=== PATIENT | male | born 1980 | race Caucasian/White ===

== ENCOUNTER 2020-07-09 17:13 | Emergency (ER) | payer BC, SELFPAY ==
[2020-07-09 17:15] VITALS: BP 146/102; PULSE 126; RESP 20; TEMP 36.1; O2SAT 97; BMI 32.5
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
--- NOTE | 2020-07-09 17:44 | ED.DEP ---
ED Disposition - Plan for ED Patient: Disposition: Home or Assisted Living Instructions: ED Chronic Pain Referrals: Bandar Chaves DO [Primary Care Provider] - As Needed Rakesh Alegre DDS [STAFF PHYSICIAN] - 1-2 Weeks Additional Instructions: Follow-up with the oral surgeon Dr. Rakesh Alegre. Tylenol and/or Motrin for pain or your NSAID prescription at home. Low up with your primary care physician as needed.
[2020-07-09] MEDS: HYDROcodone Bitartrate/Apap 5/325 Tablet PO (17:53)
== END 2020-07-09 18:04 | disposition home or self-care (01) ==
LOC: ED 18:03
PROVIDERS: Emergency Provider Emergency Medicine; PCP Family Medicine
DX: R68.84 Jaw pain (principal); G89.29 Other chronic pain; Z72.0 Tobacco use
CPT/HCPCS: 99283